=== PATIENT | male | born 1990 | race African-American/Black ===

== ENCOUNTER 2023-12-22 12:15 | Emergency (ER) | payer OTHER ==
[2023-12-22 12:39] VITALS: RESP 18; TEMP 98.2; BMI 44.6
[2023-12-22] MEDS ORDERED: ACETAMINOPHEN INJECTION 100 ML IVPB ONE (13:53)
[2023-12-22] MEDS: ACETAMINOPHEN 1000 MG/100 ML BAG IVPB ONE (13:53)
[2023-12-22 13:54] LABS: BASO % 1.3 % (0-2.0); EOS % 6.4 % (0-4.5); HEMOGLOBIN 15.5 GM/dL (11.7-16.9); LYMPH % 37.1 % (8-40); MCH 28.8 pg (25.7-33.7); MCHC 33.8 g/dl (32.0-35.9); MEAN CELL VOLUME 85.2 fl (80-96); MEAN PLT VOLUME 10.6 fl (7.5-11.1); MONO % 9.4 % (3.8-10.2); NEUT % 45.8 % (42.8-82.8); PLATELET COUNT 226 10^3/uL (134-434); RDW 13.3 % (11.9-15.9); WHITE BLOOD COUNT 5.8 K/mm3 (4.0-10.0)
[2023-12-22 13:59] LABS: INR 0.98 (0.83-1.09); PROTHROMBIN TIME (PATIENT) 11.3 SEC (9.7-13.0)
[2023-12-22 14:01] LABS: ACTIVATED PTT 31.5 SECONDS (25.2-36.5)
[2023-12-22 14:09] LABS: CHLORIDE 106 mmol/L (98-107); SODIUM 137 mmol/L (136-145)
[2023-12-22 14:11] LABS: CALCIUM 8.4 mg/dL (8.5-10.1); GLUCOSE,RANDOM 93 mg/dL (74-106)
[2023-12-22 14:12] LABS: ALBUMIN 3.6 g/dl (3.4-5.0); BLOOD UREA NITROGEN 10.5 mg/dL (7-18); CO2 27 mmol/L (21-32)
[2023-12-22 14:15] LABS: CREATININE 1.1 mg/dL (0.55-1.3)
[2023-12-22 14:16] LABS: BILIRUBIN,TOTAL 0.6 mg/dL (0.2-1); TOT PROT 8.3 g/dl (6.4-8.2)
[2023-12-22 14:17] LABS: ALK PHOS 63 U/L (45-117)
[2023-12-22 14:22] LABS: ANION GAP 3 mmol/L (4-13); SGOT/AST 110 U/L (15-37); SGPT/ALT 56 U/L (13-61)
[2023-12-22 15:16] LABS: BLOOD UREA NITROGEN 10.5 mg/dL (7-18)
[2023-12-22] MEDS ORDERED: FAMOTIDINE 20 MG/50 ML IVPB 20 MG/50 ML MG IVPB ONE (15:18)
[2023-12-22] MEDS ORDERED: MAG HYDROX/AL HYDROX/SIMETH 30 ML UNIT-DOSE CUP ONE (15:18)
[2023-12-22] MEDS: MAG HYDROX/AL HYDROX/SIMETH 30 ML UNIT-DOSE CUP PO ONE (15:25)
[2023-12-22] MEDS: FAMOTIDINE 20 MG/50 ML IVPB 20 MG/50 ML MG IVPB ONE (15:25)
[2023-12-22 15:40] VITALS: BP 126/71; PULSE 73
== END 2023-12-22 15:40 | disposition home or self-care (01) ==
LOC: JER 12:15
PROC: 3E033GC Introduction of Other Therapeutic Substance into Peripheral Vein, Percutaneous Approach (ICD-10-PCS; principal; 2023-12-22)
PROC: 3E033NZ Introduction of Analgesics, Hypnotics, Sedatives into Peripheral Vein, Percutaneous Approach (ICD-10-PCS; 2023-12-22)
DX: K21.9 Gastro-esophageal reflux disease without esophagitis (principal); R07.9 Chest pain, unspecified; R06.02 Shortness of breath
CPT/HCPCS: 36415; 71045-TC-FY; 80048; 80053; 82962; 83690; 84484; 85025; 85379; 85610; 85730; 86850; 86900; 86901; 93005; 93010; 99285-25; J0131